=== PATIENT | female | born 1975 | race Hispanic/Latino ===

== ENCOUNTER 2022-01-29 09:17 | Emergency (ER) | payer OTHER ==
[~2022-01-29] VITALS: Ht 165.1 cm; Wt 81.6 kg
[2022-01-29 09:50] LABS: BASOPHILS % (AUTO) 0.7 % (0.0-5.0); EOSINOPHILS % (AUTO) 4.4 % (0.0-8.0); HEMATOCRIT 39.9 % (36-48); LYMPHOCYTES % (AUTO) 36.3 % (21.0-51.0); MEAN CORPUSCULAR HEMOGLOBIN 31.4 pg (27.0-33.0); MEAN CORPUSCULAR HGB CONC 33.8 g/dL (32.0-36.0); MEAN CORPUSCULAR VOLUME 92.8 fL (79-99); NEUTROPHILS % (AUTO) 48.3 % (40.0-77.0); PLATELET COUNT (AUTO) 190 K/uL (130-400); RED CELL DISTRIBUTION WIDTH 12.7 % (11.0-15.5); WHITE BLOOD COUNT (AUTO) 6.1 K/uL (4.8-10.8)
[2022-01-29 09:57] LABS: APPEARANCE,URINE SL CLOUDY (CLEAR); BILIRUBIN,URINE NEGATIVE (NEGATIVE); COLOR,URINE YELLOW (YELLOW); GLUCOSE, URINE (UA) NEGATIVE (NEGATIVE); KETONES,URINE NEGATIVE (NEGATIVE); LEUKOCYTE ESTERASE ,URINE NEGATIVE Leu/uL (NEGATIVE); NITRATE,URINE NEGATIVE (NEGATIVE); OCCULT BLOOD,URINE LARGE (NEGATIVE); PROTEIN,URINE 30 mg/dL (NEGATIVE); UROBILINOGEN,URINE 0.2 mg/dL (0.2-1.0)
[2022-01-29 10:19] LABS: CREATININE 0.8 mg/dL (0.5-1.5); POTASSIUM 3.8 mmol/L (3.5-5.1)
[2022-01-29 10:23] LABS: MAGNESIUM 2.1 mg/dL (1.80-2.40)
[2022-01-29 10:33] LABS: WBC,URINE 0-1 /HPF (0-1)
[2022-01-29 10:34] LABS: BACTERIA,URINE Few /HPF (None Seen)
[2022-01-29] MEDS ORDERED: KETOROLAC 30MG VIAL (30MG/ML) ONE (10:59)
[2022-01-29] MEDS ORDERED: KETOROLAC 30MG VIAL (30MG/ML) IVP ONE (11:00)
[2022-01-29] MEDS ORDERED: TIZA4CAP8 PO (11:54)
[2022-01-29 12:02] VITALS: BP 129/74
== END 2022-01-29 12:03 | disposition home or self-care (01) ==
LOC: EDH 09:17
DX: R07.89 Other chest pain (principal); M54.2 Cervicalgia; M54.6 Pain in thoracic spine; E11.9 Type 2 diabetes mellitus without complications; E78.00 Pure hypercholesterolemia, unspecified; F17.210 Nicotine dependence, cigarettes, uncomplicated; Z79.1 Long term (current) use of non-steroidal anti-inflammatories (NSAID)
CPT/HCPCS: 99285; 96374; 71045; 83735; 84484; 80053; 85025; 85378; 81001; 36415; 93005; J1885